=== PATIENT | female | born 1995 | race African-American/Black ===

== ENCOUNTER 2019-07-03 18:49 | Emergency (ER) | payer SELFPAY ==
[2019-07-03 20:34] LABS: ABS Eosinophils 0.1 10^3/ul (0-0.6); ABS Lymphocytes 1.4 10^3/ul (1.0-4.8); ABS Monocytes 0.6 10^3/ul (0-0.8); ABS Neutrophils 1.1 10^3/ul (1.5-7.7); Eosinophil % 3.6 %; Hematocrit 38 % (35-47); Hemoglobin 12.5 g/dL (12.0-16.0); Lymphocyte % 44.7 %; Mean Corpuscular HGB Conc 33 g/dL (31-36); Mean Corpuscular Hemoglobin 27 pg (27-31); Mean Corpuscular Volume 82 fL (80-97); Mean Platelet Volume 8.2 fL (7.4-10.4); Nucleated Red Blood Cells % 0.3; Platelet Count 256 10^3/uL (150-450); Red Blood Count 4.69 10^6 /uL (3.70-4.87); Red Cell Distribution Width 14 % (10-15); White Blood Count 3.2 10^3/uL (3.5-10.8)
[2019-07-03 20:50] LABS: ALT 11 U/L (7-52); Albumin 4.1 g/dL (3.2-5.2); Albumin/Globulin Ratio 1.2 (1-3); Alkaline Phosphatase 57 U/L (34-104); Amylase 64 U/L (29-103); BUN/Creatinine Ratio 14.7 (8-20); Blood Urea Nitrogen 11 mg/dL (6-24); C Reactive Protein 13.09 mg/L (<8.01); CO2 Carbon Dioxide 25 mmol/L (22-32); Chloride 106 mmol/L (101-111); EGFR African American 115.9 (>60); EGFR Non-African American 95.8 (>60); Globulin 3.4 g/dL (2-4); Glucose 86 mg/dL (70-100); Magnesium 1.9 mg/dL (1.9-2.7); Sodium 138 mmol/L (135-145); Total Protein 7.5 g/dL (6.4-8.9)
[2019-07-03 20:55] LABS: HCG Pregnancy < 0.60 mIU/mL
[2019-07-03 21:29] LABS: AST 21 U/L (13-39); Anion Gap 7 mmol/L (2-11); Potassium 3.9 mmol/L (3.5-5.0)
[2019-07-03 21:35] VITALS: BP 117/74
== END 2019-07-03 22:33 | disposition left against medical advice (07) ==
LOC: ED 18:49
DX: R10.30 Lower abdominal pain, unspecified (principal); Z53.21 Procedure and treatment not carried out due to patient leaving prior to being seen by health care provider
CPT/HCPCS: 36415; 74019; 80053; 82150; 83605; 83690; 83735; 83880; 84702; 85025; 86140; 99282

== ENCOUNTER 2019-07-04 18:30 | Emergency (ER) | payer SELFPAY ==
[2019-07-04] MEDS ORDERED: Morphine 4 MG/ML VIAL (1 ml) 4 MG/ML VIAL IV ONE (19:44)
[2019-07-04] MEDS ORDERED: NS 0.9% 1000 ML** 1,000 ML IV ONE (19:44)
[2019-07-04] MEDS ORDERED: Ondansetron INJ* 2 MG/ML VIAL IV ONE (19:47)
--- NOTE | 2019-07-04 19:47 | ED ---
GI/ HPI - HPI Summary HPI Summary: This pt is a 23 Y/O F presenting to [facility] with a CC of pelvic pain that radiates into her stomach while she walks and is rated a 10/10 in severity. She states that her pain started on 07/01/2019 and has been constant and worsening since. She states that she has had a decreased appetite and decreased liquid intake due to the pain. She states that she has dysuria and pain in her R flank while walking. She denies any vaginal bleeding or discharge, fevers, chills, N/V , and headaches. She states that her periods are irregular and her last one was in March. She states that she has a PMHx of asthma. She states that walking aggravates her symptoms. She denies any alleviating factors. - History of Current Complaint Chief Complaint: EDAbdPain Time Seen by Provider: 07/04/19 19:38 Stated Complaint: ABD PAIN PER PT Hx Obtained From: Patient Onset/Duration: Started Days Ago - 3, Still Present, Worse Since - onset Timing: Constant, Lasting Days - 3 Severity: Moderate Current Severity: Severe Pain Intensity: 10 Location of Pain: Radiates to: - stomach, Other - Pelvis Associated Signs and Symptoms: Positive: Negative - headaches, Flank Pain, Abdominal Pain - radiated during ambulation. Negative: Nausea, Vomiting, Discharge, Fever, Chills Additional Signs & Symptoms: Negative: Vaginal Bleeding, Vaginal Discharge - Allergy/Home Medications Allergies/Adverse Reactions: Allergies Allergy/AdvReac Type Severity Reaction Status Date / Time No Known Allergies Allergy Verified 11/12/13 14:35 PMH/Surg Hx/FS Hx/Imm Hx Previously Healthy: Yes Endocrine/Hematology History: Denies: Hx Anticoagulant Therapy, Hx Blood Disorders, Hx Blood Transfusions, Hx Bone Marrow Disease, Hx Diabetes, Hx Systemic Lupus Erythematosus, Hx Sickle Cell Disease - has trait, Hx Thyroid Disease, Hx Anemia, Hx Unexplained Bleeding , Other Endocrine/Hematological Disorders Cardiovascular History: Denies: Hx Congestive Heart Failure Respiratory History: Reports: Hx Asthma Denies: Hx Chronic Bronchitis, Hx Chronic Obstructive Pulmonary Disease (COPD ), Hx Cystic Fibrosis, Hx Lung Cancer, Hx Pleural Effusion, Hx Pneumonia, Hx Pulmonary Edema, Hx Pulmonary Embolism, Hx Seasonal Allergies, Hx Sleep Apnea, Other Respiratory Problems/Disorders GI History: Denies: Hx Cirrhosis, Hx Crohn's Disease, Hx Diverticulosis, Hx Gall Bladder Disease, Hx Gastroesophageal Reflux Disease, Hx Gastrointestinal Bleed, Hx Hiatal Hernia, Hx Irritable Bowel, Hx Jaundice, Hx Obstructive Bowel, Hx Ileostomy, Hx Pyloric Stenosis, Hx Ulcer, Other GI Disorders History: Denies: Hx Renal Disease Neurological History: Denies: Hx Dementia, Hx Developmental Delay, Hx Headaches, Hx Migraine, Hx Nerve Disease, Hx Seizures, Hx Spinal Cord Injury, Hx Transient Ischemic Attacks (TIA), Other Neuro Impairments/Disorders Psychiatric History: Reports: Hx Depression, Hx Inpatient Treatment, Hx Community Mental Health Tx, Hx Suicide Attempt Denies: Hx Anxiety, Hx Attention Deficit Hyperactivity Disorder, Hx Eating Disorder, Hx Panic Disorder, Hx Post Traumatic Stress Disorder, Hx Schizophrenia , Hx Bipolar Disorder, Hx of Violent Episodes Against Others, Hx Substance Abuse , Other Psychiatric Issues/Disorders - Cancer History Hx Chemotherapy: No Hx Radiation Therapy: No - Surgical History Surgical History: None Hx Anesthesia Reactions: No - Immunization History Date of Tetanus Vaccine: unk Immunizations Up to Date: Yes Infectious Disease History: No Infectious Disease History: Denies: Hx Clostridium Difficile, Hx Hepatitis, Hx Human Immunodeficiency Virus (HIV), Hx of Known/Suspected MRSA, Hx Tuberculosis, Hx Known/Suspected VRE , Hx Known/Suspected VRSA, History Other Infectious Disease, Traveled Outside the [place] in Last 30 Days - Family History Known Family History: Negative: Hypertension, Diabetes - Social History Occupation: Employed Part-time, Student Lives: Alone Alcohol Use: None Hx Substance Use: No Substance Use Type: Reports: None Hx Tobacco Use: No Smoking Status (MU): Never Smoked Tobacco Review of Systems Negative: Fever, Chills Positive: Abdominal Pain - radiated during ambulation , Other - Pelvic pain. Negative: Vomiting, Nausea Genitourinary: Negative - Perry vaginal bleeding Negative: discharge Negative: Headache All Other Systems Reviewed And Are Negative: Yes Physical Exam - Summary Physical Exam Summary: Appearance: Well-appearing, Well-nourished, lying in bed comfortably Skin: Warm, dry, no obvious rash Eyes: sclera anicteric, no conjunctival pallor ENT: mucous membranes moist, pharynx appears normal Neck: Supple, nontender Respiratory: Clear to auscultation, no signs of respiratory distress Cardiovascular: Normal S1, S2. No murmurs. Normal distal pulses in tibial and radial bilaterally. Abdomen: Soft, mild RLQ tenderness without peritoneal signs, normal active bowel sounds present Musculoskeletal: Normal, Strength/ROM Intact Neurological: A&Ox3, awake and alert, mentation is normal, speech is fluent and appropriate Psychiatric: affect is normal, does not appear anxious or depressed Triage Information Reviewed: Yes Vital Signs On Initial Exam: Initial Vitals Temp Pulse Resp BP Pulse Ox 97.8 F 95 18 136/79 99 07/04/19 18:31 07/04/19 18:31 07/04/19 18:31 07/04/19 18:31 07/04/19 18:31 Vital Signs Reviewed: Yes Procedures - Sedation Patient Received Moderate/Deep Sedation with Procedure: No Diagnostics - Vital Signs Vital Signs Temp Pulse Resp BP Pulse Ox 07/04/19 18:31 97.8 F 95 18 136/79 99 - Laboratory Result Diagrams: 07/04/19 19:40 07/04/19 19:40 Lab Statement: Any lab studies that have been ordered have been reviewed, and results considered in the medical decision making process. - Ultrasound Appendix US Ultrasound Interpretation Completed By: Radiologist Summary of Ultrasound Findings: The appendix was not visualized. ED physician has reviewed this report. Pelvic US Ultrasound Interpretation Completed By: Radiologist Summary of Ultrasound Findings: Normal pelvic ultrasound. ED Physician has reviewed this report. GIGU Course/Dx - Course Course Of Treatment: This pt is a 23 Y/O F presenting to [facility] with a CC of pelvic pain that radiates into her stomach while she walks and is rated a 10/10 in severity. She states that her pain started on 07/01/2019 and has been constant and worsening since. She states that she has had a decreased appetite and decreased liquid intake due to the pain. She states that she has dysuria and pain in her R flank while walking. She denies any vaginal bleeding or discharge , fevers, chills, N/V, and headaches. She states that her periods are irregular and her last one was in March. Her PE found mild RLQ abdominal tenderness wihtout peritoneal signs. Her labratory reults showed abnormalities in her potassium and C-Reactive proteins and Urobilinogen. Her Pelvic US shows no acute processes. Her Appendix US shows: The appendix was not visualized. She will be diagnosed with PID and discharged home. - Diagnoses Provider Diagnoses: PID (pelvic inflammatory disease) Discharge ED - Sign-Out/Discharge Documenting (check all that apply): Patient Departure - discharge - Discharge Plan Condition: Stable Disposition: HOME Prescriptions: DOXYcycline CAP(*) [DOXYcycline 100MG CAP(*)] 100 mg PO BID #28 cap Patient Education Materials: Pelvic Inflammatory Disease (ED) Referrals: Justin Navarro MD [Primary Care Provider] - 2 Days - Billing Disposition and Condition Condition: STABLE Disposition: Home - Attestation Statements Document Initiated by Scribe: Yes Documenting Scribe: Kostas Haque Provider For Whom Valentín is Documenting (Include Credential): Rolo Mandel MD Scribe Attestation: Kostas Mcdermott, scribed for Rolo Mandel MD on 07/06/19 at 0234. Scribe Documentation Reviewed: Yes Provider Attestation: The documentation as recorded by the Kostas garcía accurately reflects the service I personally performed and the decisions made by Rolo dyer MD Status of Scribe Document: Viewed
[2019-07-04 19:48] LABS: ABS Lymphocytes 1.4 10^3/ul (1.0-4.8); ABS Monocytes 0.6 10^3/ul (0-0.8); ABS Neutrophils 2.2 10^3/ul (1.5-7.7); Eosinophil % 0.9 %; Hematocrit 38 % (35-47); Hemoglobin 12.8 g/dL (12.0-16.0); Mean Corpuscular HGB Conc 34 g/dL (31-36); Mean Corpuscular Hemoglobin 27 pg (27-31); Mean Corpuscular Volume 81 fL (80-97); Mean Platelet Volume 8.4 fL (7.4-10.4); Nucleated Red Blood Cells % 0.1; Platelet Count 251 10^3/uL (150-450); Red Blood Count 4.66 10^6 /uL (3.70-4.87); Red Cell Distribution Width 15 % (10-15); White Blood Count 4.3 10^3/uL (3.5-10.8)
[2019-07-04 20:05] LABS: ALT 17 U/L (7-52); AST 24 U/L (13-39); Albumin 4.4 g/dL (3.2-5.2); Albumin/Globulin Ratio 1.3 (1-3); Alkaline Phosphatase 59 U/L (34-104); Anion Gap 7 mmol/L (2-11); BUN/Creatinine Ratio 15.8 (8-20); Blood Urea Nitrogen 12 mg/dL (6-24); C Reactive Protein 10.71 mg/L (<8.01); CO2 Carbon Dioxide 27 mmol/L (22-32); Calcium 9.4 mg/dL (8.6-10.3); Chloride 106 mmol/L (101-111); EGFR African American 114.1 (>60); EGFR Non-African American 94.3 (>60); Globulin 3.4 g/dL (2-4); Glucose 88 mg/dL (70-100); Potassium 3.4 mmol/L (3.5-5.0); Sodium 140 mmol/L (135-145); Total Protein 7.8 g/dL (6.4-8.9)
[2019-07-04 20:11] LABS: HCG Pregnancy < 0.60 mIU/mL
[2019-07-04 20:22] LABS: Urine Appearance Clear; Urine Bilirubin Negative (Negative); Urine Blood Negative (Negative); Urine Color Yellow; Urine Glucose Negative (Negative); Urine Ketones Negative (Negative); Urine Nitrite Negative (Negative); Urine Protein Negative (Negative); Urine Specific Gravity 1.023 (1.010-1.030); Urine Urobilinogen Positive (Negative)
[2019-07-04 21:39] LABS: HIV 4th Generation Nonreactive (Nonreactive)
[2019-07-04] MEDS ORDERED: cefTRIAXone VIAL(*) 250 MG VIAL IM ONE (22:55)
[2019-07-04] MEDS ORDERED: Lidocaine 1% MPF ** 5 ML VIAL IM ONE (22:55)
[2019-07-04] MEDS: DOXYcycline CAP(*) 100 MG PO ONE ×2 (23:12→23:17)
[2019-07-04 23:22] VITALS: BP 114/74
[2019-07-05 14:23] LABS: Chlamydia trachomatis NAA Negative (Negative); Neisseria gonorrhoeae (GC) NAA Negative (Negative)
== END 2019-07-04 23:21 | disposition home or self-care (01) ==
LOC: ED 18:30
DX: N73.9 Female pelvic inflammatory disease, unspecified (principal); J45.909 Unspecified asthma, uncomplicated; F32.9 Major depressive disorder, single episode, unspecified
CPT/HCPCS: 36415; 76705; 76830; 76856; 80053; 81003; 84702; 85025; 86140; 87389; 87491; 87591; 96361; 96372; 96374; 96375; 99283; A9270-GY; J0696; J2270; J2405

== ENCOUNTER 2019-07-13 10:51 | Emergency (ER) | payer SELFPAY ==
[2019-07-13] MEDS ORDERED: Ibuprofen ADULT LIQ* 600 MG/30 ML UDC PO ONE (11:22)
[2019-07-13] MEDS ORDERED: DOXYcycline CAP(*) 100 MG PO ONE (11:23)
[2019-07-13 11:43] LABS: ABS Eosinophils 0.1 10^3/ul (0-0.6); ABS Lymphocytes 1.4 10^3/ul (1.0-4.8); ABS Monocytes 0.3 10^3/ul (0-0.8); ABS Neutrophils 1.9 10^3/ul (1.5-7.7); Eosinophil % 1.7 %; Hematocrit 36 % (35-47); Hemoglobin 12.1 g/dL (12.0-16.0); Lymphocyte % 37.8 %; Mean Corpuscular HGB Conc 33 g/dL (31-36); Mean Corpuscular Hemoglobin 27 pg (27-31); Mean Corpuscular Volume 82 fL (80-97); Mean Platelet Volume 8.2 fL (7.4-10.4); Nucleated Red Blood Cells % 0.1; Platelet Count 250 10^3/uL (150-450); Red Blood Count 4.47 10^6 /uL (3.70-4.87); Red Cell Distribution Width 14 % (10-15); White Blood Count 3.6 10^3/uL (3.5-10.8)
[2019-07-13 12:29] VITALS: BP 105/7
--- NOTE | 2019-07-13 12:46 | ED ---
Abdominal Pain/Female - HPI Summary HPI Summary: This patient is an otherwise healthy 23-year-old female presenting to the ED with right sided pelvic pain radiating up into the right upper quadrant. At approximate 2 months, however worsened over the past 2 weeks. She was seen in the ED 10 days ago, appendix ultrasound, abdominal x-ray and pelvic ultrasound was obtained. She also had labs obtained. All labs and images were normal. This patient was having right sided pain with right flank pain, she was diagnosed with PID. STD testing was negative. She was prescribed doxycycline. She states she picked this medication up only yesterday. She has had one dose and returns to the ED stating she is having more abdominal pain. She has not taken anything [id number] for relief. She denies any vaginal discharge, or right flank pain at this time. She denies any urinary symptoms including gross hematuria. Denies fevers, sweats, chills. She states symptoms are similar to 10 days ago. She does admit to some constipation and has not taken anything for the discomfort. She takes no medications typically. Denies any known allergies. No smoking. No alcohol use. She sees [facility] LE[facility] at [facility]. Last LMP March. States irregular at baseline. - History of Current Complaint Chief Complaint: EDAbdPain Stated Complaint: ABDOMINAL PAIN PER PT Time Seen by Provider: 07/13/19 11:00 Hx Obtained From: Patient ?: No Onset/Duration: Sudden Onset Timing: Constant Severity Initially: Moderate Severity Currently: Moderate Pain Intensity: 8 Pain Scale Used: 0-10 Numeric Location: Other - right sided pain Radiates: No Character: Cramping Aggravating Factor(s): Nothing Alleviating Factor(s): Nothing Associated Signs and Symptoms: Positive: Constipation. Negative: Urinary Symptoms, Decreased Appetite, Vaginal Discharge, Nausea, Vomiting, Diarrhea - Risk Factors Ectopic Risk Factor: Negative Ovarian Torsion Risk Factor: Negative Allergies/Adverse Reactions: Allergies Allergy/AdvReac Type Severity Reaction Status Date / Time No Known Allergies Allergy Verified 07/13/19 10:55 Home Medications: Home Medications NK [No Home Medications Reported] 07/13/19 [History Confirmed 07/13/19] PMH/Surg Hx/FS Hx/Imm Hx Previously Healthy: Yes Endocrine/Hematology History: Denies: Hx Anticoagulant Therapy, Hx Blood Disorders, Hx Blood Transfusions, Hx Bone Marrow Disease, Hx Diabetes, Hx Systemic Lupus Erythematosus, Hx Sickle Cell Disease - has trait, Hx Thyroid Disease, Hx Anemia, Hx Unexplained Bleeding , Other Endocrine/Hematological Disorders Cardiovascular History: Denies: Hx Congestive Heart Failure Respiratory History: Reports: Hx Asthma Denies: Hx Chronic Bronchitis, Hx Chronic Obstructive Pulmonary Disease (COPD ), Hx Cystic Fibrosis, Hx Lung Cancer, Hx Pleural Effusion, Hx Pneumonia, Hx Pulmonary Edema, Hx Pulmonary Embolism, Hx Seasonal Allergies, Hx Sleep Apnea, Other Respiratory Problems/Disorders GI History: Denies: Hx Cirrhosis, Hx Crohn's Disease, Hx Diverticulosis, Hx Gall Bladder Disease, Hx Gastroesophageal Reflux Disease, Hx Gastrointestinal Bleed, Hx Hiatal Hernia, Hx Irritable Bowel, Hx Jaundice, Hx Obstructive Bowel, Hx Ileostomy, Hx Pyloric Stenosis, Hx Ulcer, Other GI Disorders History: Denies: Hx Renal Disease Neurological History: Denies: Hx Dementia, Hx Developmental Delay, Hx Headaches, Hx Migraine, Hx Nerve Disease, Hx Seizures, Hx Spinal Cord Injury, Hx Transient Ischemic Attacks (TIA), Other Neuro Impairments/Disorders Psychiatric History: Reports: Hx Depression, Hx Inpatient Treatment, Hx Community Mental Health Tx, Hx Suicide Attempt Denies: Hx Anxiety, Hx Attention Deficit Hyperactivity Disorder, Hx Eating Disorder, Hx Panic Disorder, Hx Post Traumatic Stress Disorder, Hx Schizophrenia , Hx Bipolar Disorder, Hx of Violent Episodes Against Others, Hx Substance Abuse , Other Psychiatric Issues/Disorders - Cancer History Hx Chemotherapy: No Hx Radiation Therapy: No - Surgical History Hx Anesthesia Reactions: No - Immunization History Date of Tetanus Vaccine: unk Hx Pertussis Vaccination: No Immunizations Up to Date: Yes Infectious Disease History: No Infectious Disease History: Denies: Hx Clostridium Difficile, Hx Hepatitis, Hx Human Immunodeficiency Virus (HIV), Hx of Known/Suspected MRSA, Hx Tuberculosis, Hx Known/Suspected VRE , Hx Known/Suspected VRSA, History Other Infectious Disease, Traveled Outside the [place] in Last 30 Days - Family History Known Family History: Negative: Hypertension, Diabetes - Social History Occupation: Unemployed Lives: With Family Alcohol Use: None Hx Substance Use: No Substance Use Type: Reports: None Hx Tobacco Use: No Smoking Status (MU): Never Smoked Tobacco Review of Systems Negative: Fever, Chills, Fatigue, Skin Diaphoresis Negative: Palpitations, Chest Pain Negative: Shortness Of Breath, Cough Positive: Abdominal Pain - abd pain throughout. Negative: Vomiting, Nausea Genitourinary: Negative Positive: no symptoms reported, see HPI Negative: Arthralgia, Myalgia Skin: Negative All Other Systems Reviewed And Are Negative: Yes Physical Exam Triage Information Reviewed: Yes Vital Signs On Initial Exam: Initial Vitals Temp Pulse Resp BP Pulse Ox 98.5 F 81 15 115/72 100 07/13/19 10:53 07/13/19 10:53 07/13/19 10:53 07/13/19 10:53 07/13/19 10:53 Vital Signs Reviewed: Yes Appearance: Positive: Well-Appearing, Well-Nourished Neck: Positive: Supple, No Lymphadenopathy Respiratory/Lung Sounds: Positive: Clear to Auscultation, Breath Sounds Present Cardiovascular: Positive: RRR, Pulses are Symmetrical in both Upper and Lower Extremities Musculoskeletal: Positive: Strength/ROM Intact Neurological: Positive: Speech Normal Psychiatric: Positive: Normal, Affect/Mood Appropriate AVPU Assessment: Alert Procedures - Sedation Patient Received Moderate/Deep Sedation with Procedure: No Diagnostics - Vital Signs Vital Signs Temp Pulse Resp BP Pulse Ox 07/13/19 12:28 98.4 F 89 16 105/7 100 07/13/19 10:53 98.5 F 81 15 115/72 100 - Laboratory Lab Results: Lab Results 07/13/19 07/13/19 Range/Units 11:37 11:37 WBC 3.6 (3.5-10.8) 10^3/uL RBC 4.47 (3.70-4.87) 10^6 /uL Hgb 12.1 (12.0-16.0) g/dL Hct 36 (35-47) % MCV 82 (80-97) fL MCH 27 (27-31) pg MCHC 33 (31-36) g/dL RDW 14 (10-15) % Plt Count 250 (150-450) 10^3/uL MPV 8.2 (7.4-10.4) fL Neut % (Auto) 52.1 % Lymph % (Auto) 37.8 % [place] % (Auto) 7.7 % Eos % (Auto) 1.7 % Baso % (Auto) 0.7 % Absolute Neuts (auto) 1.9 (1.5-7.7) 10^3/ul Absolute Lymphs (auto) 1.4 (1.0-4.8) 10^3/ul Absolute Monos (auto) 0.3 (0-0.8) 10^3/ul Absolute Eos (auto) 0.1 (0-0.6) 10^3/ul Absolute Basos (auto) 0.0 (0-0.2) 10^3/ul Absolute Nucleated RBC 0.0 10^3/ul Nucleated RBC % 0.1 C-Reactive Protein 4.58 (<8.01) mg/L Result Diagrams: 07/13/19 11:37 Lab Statement: Any lab studies that have been ordered have been reviewed, and results considered in the medical decision making process. Abdominal Pain Fem Course/Dx - Course Course Of Treatment: On physical examination, patient is having mild discomfort to the right sided pelvic region radiating up into the right upper quadrant. Negative tenderness on palpation to the right side. No McBurney's point tenderness. Negative Noriega sign. No Rovsing's, obturator or psoas signs. No rebound tenderness. Good bowel sounds present throughout. Lungs CTA, R. Patient appears well and does not appear to be in any acute distress. States symptoms have been present 2 months, worse over the past 2 weeks. She was diagnosed with PID, however never took the prescription until yesterday. States she is continuing to have symptoms and will need a note for work. She is not tried any [id number] medications. She was given ibuprofen with good relief. Labs obtained are WNL. She was given a doxycycline in the ED. Patient able to swallow. - Diagnoses Differential Diagnosis: Positive: Constipation, Ovarian Cyst, Pelvic Inflammatory Disease, Urinary Tract Infection Provider Diagnoses: Right sided abdominal pain Discharge ED - Sign-Out/Discharge Documenting (check all that apply): Patient Departure - Discharge Plan Condition: Stable Disposition: HOME Forms: *Work Release Referrals: Justin Navarro MD [Primary Care Provider] - Additional Instructions: Labs are stable today Ibuprofen 600mg four times daily for pain Please follow up with OBGYN Continue your doxycycline Miralax or Senna for constipation - Billing Disposition and Condition Condition: STABLE Disposition: Home
== END 2019-07-13 12:28 | disposition home or self-care (01) ==
LOC: ED 10:51
DX: R10.2 Pelvic and perineal pain (principal); R10.11 Right upper quadrant pain; J45.909 Unspecified asthma, uncomplicated; F32.9 Major depressive disorder, single episode, unspecified
CPT/HCPCS: 36415; 85025; 86140; 99282; A9270-GY